=== PATIENT | female | born 1940 | race Caucasian/White ===

== ENCOUNTER → 2017-03-16 | Outpatient (CLI) | payer MEDICARE, OTHER ==
[~2017-03-16] MED LIST: ADULT LOW DOSE81 MG PO; BONIVA150 MG PO; CALTRATE 600+D1 TAB PO; CHEWABLE ASPIRI81 MG PO; DICLOFENAC 50MG50 MG PO; HYDROCODONE-APA1 TA1 PO; HYDROCODONE1 TABLET PO; LORTAB 5/500 501 TAB PO; LOVENOX40 MG/0.4 SC; MELOXICAM15 MG PO; OMEPRAZOLE20 MG PO; PRAVACHOL 40MG40 MG PO; PROTONIX 40MG T40 MG PO
--- NOTE | 2017-03-18 19:35 | RADIOLOGY REPORT PS360 ---
DIG MAMM-SCREEN [facility] W/CAD CAD Screening ORDERING PHYSICIAN : Tyron Juarez MD PATIENT AGE: 77 years GENDER: Female COMPARISON: Previous mammograms: March 2016, January. January 2014 INDICATION: Routine screening Surgical history-previous right lumpectomy malignancy. Upper outer quadrant right breast TECHNIQUE: Standard CC and MLO images were obtained. R2 CAD reviewed. FINDINGS: Moderately dense breasts for age Vascular calcifications both breast scattered benign calcifications. RIGHT BREAST: Stable with no significant new findings. Follow-up in one year. LEFT BREAST: There is area of slight increased density seen at the deep lateral left breast, labeled X. This may merely reflect a summation shadow but density here is slightly more pronounced and would benefit from additional view as well as ultrasound. Particularly in this high-risk patient IMPRESSION: Left breast:. Focal Area of slight increased density at the upper outer quadrant left breast may merely be due to summation shadow but warrants additional spot views and ultrasound to further evaluate in.. Labeled X Right breast. Stable follow-up in one year BI-RADS CATEGORY: 0_Incomplete: Need additional imaging. RECOMMENDED FOLLOWUP: ADD ADDITIONAL IMAGING Left breast Spot views and ultrasound (A letter has been sent to the patient regarding results of the study.)
== END ==
LOC: RAD 08:14
DX: Z12.31 Encounter for screening mammogram for malignant neoplasm of breast (principal); Z85.3 Personal history of malignant neoplasm of breast
CPT/HCPCS: G0202

== ENCOUNTER → 2017-03-24 | Outpatient (CLI) | payer MEDICARE, OTHER ==
--- NOTE | 2017-03-29 14:53 | RADIOLOGY REPORT PS360 ---
DIG MAMM-DX UNI A/VWS-LT W/CAD, US BREAST-LT COMPLETE W/AXILLA COMPARISON: 03/16/2017 at 03/12/2016 INDICATION: Abnormal mammogram follow-up ORDERING PHYSICIAN: Tyron Juarez MD PATIENT AGE: 77 years TECHNIQUE: Spot compression views are performed along with left breast ultrasound FINDINGS: There is dense fibroglandular tissue. The asymmetric density in the lateral aspect of the left breast does appear to compress out as fibroglandular tissue. There is a persistent well-circumscribed 5 mm nodular opacity in the central aspect of the left breast. The asymmetric density in the superior left breast does appear to compress out as well. No malignant appearing mass or malignant appearing microcalcification. Left breast ultrasound: There is a 5 mm cyst in the 6:00 region of the left breast corresponding to the benign-appearing nodular opacity. Small lymph nodes are present in the left axilla. There is a questionable area of decreased echogenicity at the 2:00 region probably related to fibroglandular tissue not having a distinct appearance on both transverse and sagittal images IMPRESSION: Probably benign findings. No discrete mass. 5 mm cyst in the 6:00 region of the left breast. Ill-defined area of hypoechogenicity at 2:00 probably related to fibroglandular tissue BI-RADS CATEGORY: 3_Probably Benign-Short Term F/U RECOMMENDED FOLLOWUP: 6 month mammographic and sonographic follow-up. Also recommend correlation with physical exam (A letter has been sent to the patient regarding results of the study.)
== END ==
LOC: RAD 13:17
DX: C50.911 Malignant neoplasm of unspecified site of right female breast (principal); R92.8 Other abnormal and inconclusive findings on diagnostic imaging of breast; Z85.3 Personal history of malignant neoplasm of breast
CPT/HCPCS: G0206-LT